=== PATIENT | male | born 1985 | race American Indian/Alaskan Native ===

== ENCOUNTER 2018-06-13 20:27 | Emergency (ER) | payer OTHER, MEDICAID ==
[2018-06-13 20:35] VITALS: RESP 18; TEMP 98.4
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
[2018-06-13 23:09] VITALS: BP 135/81; PULSE 82; O2SAT 98
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
== END 2018-06-13 22:35 | disposition home or self-care (01) ==
LOC: ED 20:27
DX: S09.90XA Unspecified injury of head, initial encounter (principal); V49.9XXA Car occupant (driver) (passenger) injured in unspecified traffic accident, initial encounter; M79.18 Myalgia, other site